=== PATIENT | female | born 1935 | race African-American/Black ===

== ENCOUNTER 2016-09-17 08:53 | Emergency (ER) | payer OTHER ==
[~2016-09-17] VITALS: Ht 167.6 cm; Wt 56.2 kg
[2016-09-17] MEDS ORDERED: DONEPEZIL HCL10 M1 PO (09:05)
[2016-09-17] MEDS ORDERED: CELEXA20 MG PO (09:05)
[2016-09-17] MEDS ORDERED: BENTYL 10 MG CA10 M1 PO (09:05)
[2016-09-17] MEDS ORDERED: CLONIDINE HCL0.1 MG PO (09:05)
[2016-09-17] MEDS ORDERED: RISPERIDONE 00.25 M1 PO (09:06)
[2016-09-17] MEDS ORDERED: RENA-VITE TABL0.8 MG PO (09:06)
[2016-09-17] MEDS ORDERED: OMEPRAZOLE 20 M20 M1 PO (09:07)
[2016-09-17 09:39] LABS: HEMATOCRIT 38.8 % (37.0-47.0); HEMOGLOBIN 12.6 gm/dL (12.0-15.0); MCH 27.5 pg (26.0-34.0); MCHC 32.6 g/dL (28.0-37.0); MCV 84.5 fL (80.0-100.0); PLATELET COUNT 156 thou/uL (150-400); RBC 4.59 mil/uL (4.20-5.00); RDW 20.2 % (10.5-14.5); WBC 9.4 thou/uL (4.0-11.0)
[2016-09-17 09:40] LABS: MANUAL DIFF YES
[2016-09-17 09:51] LABS: CALCIUM 9.7 mg/dL (8.5-10.1); POTASSIUM 4.1 mmol/L (3.5-5.1)
[2016-09-17 09:55] LABS: ALBUMIN 3.8 g/dL (3.4-5.0); TOTAL BILIRUBIN 1.1 mg/dL (<0.1-1.0); TOTAL PROTEIN 7.8 g/dL (6.4-8.2)
[2016-09-17 10:13] LABS: ABSOLUTE NEUTROPHILS 8.7 thou/uL (1.4-8.2); ANISOCYTOSIS 1+; OVALOCYTES FEW; POIKILOCYTOSIS SLIGHT; TOTAL CELL COUNT 100
[2016-09-17 10:19] LABS: URINE BILIRUBIN NEGATIVE (Negative); URINE BLOOD TRACE (Negative); URINE COLOR YELLOW; URINE GLUCOSE-RANDOM* NEGATIVE (Negative); URINE KETONES NEGATIVE (Negative); URINE LEUKOCYTES-REFLEX NEGATIVE (Negative); URINE PROTEIN (DIPSTICK) 2+ (Negative); URINE SPECIFIC GRAVITY 1.015 (1.003-1.035); URINE UROBILINOGEN 0.2 E.U./dl (0.2-1.0)
[2016-09-17 10:31] LABS: CASTS None Seen /LPF (None Seen); CRYSTALS None Seen /LPF (None Seen); SQUAMOUS 0-3 Few /LPF (0-3); URINE RBC 0-2 Rare /HPF (0-2); URINE WBC-REFLEX 0-5 Rare /HPF (0-5)
[2016-09-17 12:01] VITALS: BP 199/95
[2016-09-17] MEDS ORDERED: NORCO 5-325 TA1 EACH PO (12:20)
== END 2016-09-17 16:19 ==
LOC: ER 08:53
PROVIDERS: Nurse Practitioner Family
DX: R10.31 Right lower quadrant pain (principal); R11.2 Nausea with vomiting, unspecified; F03.90 Unspecified dementia, unspecified severity, without behavioral disturbance, psychotic disturbance, mood disturbance, and anxiety; Z99.2 Dependence on renal dialysis; I10 Essential (primary) hypertension